=== PATIENT | male | born 1995 | race Caucasian/White ===

== ENCOUNTER → 2016-09-30 | Outpatient (CLI) | payer OTHER ==
[~2016-09-30] VITALS: Ht 188 cm; Wt 78.5 kg
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
[2016-09-30 09:15] VITALS: BP 133/82
== END | disposition home or self-care (01) ==
LOC: PAIN 06:59
DX: M51.36 Other intervertebral disc degeneration, lumbar region (principal); M54.16 Radiculopathy, lumbar region